=== PATIENT | female | born 1950 | race Caucasian/White ===

== ENCOUNTER 2016-07-18 16:08 | Inpatient (IN) | payer MEDICARE, OTHER ==
[2016-07-18] VITALS (342 sets, daily range): BP systolic 101–118; BP diastolic 58–76; PULSE 79–80; TEMP 97.7–98; O2SAT 92–100
[~2016-07-18] VITALS: Ht 160 cm; Wt 45.4 kg
[2016-07-18] MEDS ORDERED: NORCO 325 MG-51 TAB PO ×2 (20:15→21:07)
[2016-07-18] MEDS ORDERED: GAS RELIEF 8080 MG PO (20:18)
[2016-07-18] MEDS ORDERED: IMODIUM A-D2 MG PO (20:19)
[2016-07-18] MEDS ORDERED: QUESTRAN4 GM/9 GM PO (20:20)
[2016-07-18 20:45] LABS: BASO % 0.2 % (0.0-2.0); EOS % 0.1 % (0-4.0); GRAN # 13.7 (1.4-6.5); GRAN % 82.9 % (42.2-75.2); HEMATOCRIT 37.3 % (37.0-47.0); HEMOGLOBIN 12.2 g/dl (12.5-16.0); LYMPH # 1.7 (1.2-3.4); LYMPH % 10.4 % (20.0-51.0); MEAN CELL VOLUME 88 fl (80.0-100.0); MEAN CORPUSCULAR HEMOGLOBIN 29 pg (27.0-31.0); MEAN CORPUSCULAR HGB CONC 33 g/dl (33.0-37.0); MEAN PLATELET VOLUME 9.6 fl (7.4-10.4); PLATELET COUNT 216 K/mm3 (130-400); RED BLOOD COUNT 4.26 M/mm3 (4.10-5.30); REDCELL DISTRIBUTION WIDTH-CV 13.4 % (11.5-14.5); WHITE BLOOD COUNT 16.6 K/mm3 (4.8-10.8)
[2016-07-18 20:54] LABS: CALCIUM 8.2 mg/dL (8.4-10.2); CREATININE, serum 0.62 mg/dL (0.52-1.25); POTASSIUM 4.5 mmol/L (3.4-5.0)
[2016-07-18] MEDS ORDERED: TYLENOL 500MG500 MG PO (21:02)
[2016-07-18] MEDS ORDERED: BETIMOL 0.5% OPH5 ML OU (21:04)
[2016-07-18] MEDS ORDERED: PRINIVIL2.5 MG PO (21:05)
[2016-07-18] MEDS ORDERED: XALATAN EYE DROPS OD (21:05)
[2016-07-18] MEDS ORDERED: FAMVIR 500500 MG/TAB PO (21:08)
[2016-07-19] VITALS (564 sets, daily range): BP systolic 90–118; BP diastolic 39–92; PULSE 74–90; TEMP 97.9–99; O2SAT 82–100
[2016-07-19 03:07] LABS: BASO % 0.1 % (0.0-2.0); EOS % 0.1 % (0-4.0); GRAN # 10.5 (1.4-6.5); GRAN % 78.6 % (42.2-75.2); LYMPH % 14.6 % (20.0-51.0); MEAN CELL VOLUME 88 fl (80.0-100.0); MEAN CORPUSCULAR HGB CONC 32 g/dl (33.0-37.0); MEAN PLATELET VOLUME 9.7 fl (7.4-10.4); MONO # 0.8 (0.1-0.6); MONO % 6.2 % (1.7-9.3); PLATELET COUNT 210 K/mm3 (130-400); RED BLOOD COUNT 4.12 M/mm3 (4.10-5.30); REDCELL DISTRIBUTION WIDTH-CV 13.4 % (11.5-14.5); WHITE BLOOD COUNT 13.4 K/mm3 (4.8-10.8)
[2016-07-19 03:09] LABS: HEMATOCRIT 36.1 % (37.0-47.0); HEMOGLOBIN 11.6 g/dl (12.5-16.0); MEAN CORPUSCULAR HEMOGLOBIN 28 pg (27.0-31.0)
[2016-07-19 03:18] LABS: CALCIUM 8.1 mg/dL (8.4-10.2); CREATININE, serum 0.63 mg/dL (0.52-1.25); POTASSIUM 4.3 mmol/L (3.4-5.0)
[2016-07-19 03:46] LABS: TROPONIN-I 1.67 ng/mL (0.000-0.034)
[2016-07-20 03:49] VITALS: BP 105/48; PULSE 73; TEMP 98.6
[2016-07-20 08:00] VITALS: BP 88/45; PULSE 70; TEMP 98
[2016-07-20 08:23] VITALS: BP 88/45; PULSE 70; TEMP 98
[2016-07-20 10:52] VITALS: BP 88/45; PULSE 70; TEMP 98
[2016-07-20] MEDS ORDERED: LIPITOR 10MG10 MG PO (12:11)
[2016-07-20] MEDS ORDERED: COREG 3.123.125 MG/T PO (12:11)
[2016-07-20] MEDS ORDERED: NITROSTAT0.4 MG/TAB SL (12:13)
[2016-07-20 12:36] VITALS: BP 93/50; PULSE 71; TEMP 98.4
== END 2016-07-20 15:23 | disposition home or self-care (01) | DRG 287 ==
LOC: IMCU 16:08 → EU 07-19 07:50 → IMCU 07-19 07:56 → MEDICAL 07-19 18:38
PROVIDERS: Internal Medicine Cardiovascular Disease
PROC: B2111ZZ Fluoroscopy of Multiple Coronary Arteries using Low Osmolar Contrast (ICD-10-PCS; principal; 2016-07-19)
DX: I25.110 Atherosclerotic heart disease of native coronary artery with unstable angina pectoris (principal); K50.90 Crohn's disease, unspecified, without complications; E44.0 Moderate protein-calorie malnutrition; Z68.1 Body mass index [BMI] 19.9 or less, adult; I51.81 Takotsubo syndrome; B02.9 Zoster without complications; Z85.01 Personal history of malignant neoplasm of esophagus; I42.0 Dilated cardiomyopathy
CPT/HCPCS: 99222-AI; 99239; C1769; C1887; C1894; J1644; J2250; J2405; J3010; J7030; J7040; Q9967

== ENCOUNTER 2017-09-29 16:18 | Observation (INO) | payer MEDICARE, OTHER ==
[~2017-09-29] VITALS: Ht 160 cm; Wt 49.7 kg
[~2017-09-29 16:18] MED LIST: BETIMOL 0.5% OPH5 ML OU; COREG 3.123.125 MG/T PO; FAMVIR 500500 MG/TAB PO; GAS RELIEF 8080 MG PO; IMODIUM A-D2 MG PO; LIPITOR 10MG10 MG PO; NITROSTAT0.4 MG/TAB SL; NORCO 325 MG-51 TAB PO; PRINIVIL2.5 MG PO; QUESTRAN4 GM/9 GM PO; TYLENOL 500MG500 MG PO; XALATAN EYE DROPS OD
[2017-09-29 17:31] VITALS: BP 144/59; PULSE 54; TEMP 98.6
[2017-09-29] MEDS ORDERED: WELCHOL 625MG625 MG PO (17:41)
[2017-09-29] MEDS ORDERED: PROTONIX 40MG T40 MG PO (17:46)
[2017-09-29 21:11] VITALS: PULSE 67; TEMP 98.1
[2017-09-29 21:29] VITALS: BP 175/75
[2017-09-30 01:51] VITALS: BP 164/63; PULSE 59; TEMP 98.1
[2017-09-30 04:00] VITALS: BP 140/58; PULSE 57; TEMP 97.9
[2017-09-30 07:48] VITALS: BP 140/63; PULSE 65; TEMP 98.1
[2017-09-30 08:29] LABS: BASO % 0.3 % (0.0-2.0); EOS # 0.2 (0.0-0.7); EOS % 2.1 % (0-4.0); GRAN # 6.4 (1.4-6.5); GRAN % 68.1 % (42.2-75.2); HEMATOCRIT 43.7 % (37.0-47.0); HEMOGLOBIN 13.9 g/dl (12.5-16.0); LYMPH # 2.1 (1.2-3.4); LYMPH % 22.5 % (20.0-51.0); MEAN CELL VOLUME 91 fl (80.0-100.0); MEAN CORPUSCULAR HEMOGLOBIN 29 pg (27.0-31.0); MEAN CORPUSCULAR HGB CONC 32 g/dl (33.0-37.0); MEAN PLATELET VOLUME 10.1 fl (7.4-10.4); MONO # 0.6 (0.1-0.6); MONO % 6.7 % (1.7-9.3); PLATELET COUNT 151 K/mm3 (130-400); RED BLOOD COUNT 4.82 M/mm3 (4.10-5.30)
[2017-09-30 08:39] LABS: CALCIUM 8.3 mg/dL (8.4-10.2); CREATININE, serum 0.59 mg/dL (0.52-1.25); POTASSIUM 3.9 mmol/L (3.4-5.0)
[2017-09-30 11:34] VITALS: BP 115/52; PULSE 79; TEMP 98.5
[2017-09-30 14:57] VITALS: BP 140/86; PULSE 69; TEMP 98.9
[2017-09-30 19:19] VITALS: BP 141/62; PULSE 71; TEMP 98.5
[2017-10-01 00:04] VITALS: BP 136/55; PULSE 62; TEMP 98.3
[2017-10-01 04:11] VITALS: BP 126/59; PULSE 58; TEMP 97.6
[2017-10-01 07:12] VITALS: BP 132/74; PULSE 61; TEMP 97.9
[2017-10-01 12:08] VITALS: BP 137/48; PULSE 59; TEMP 98.4
[2017-10-01 15:36] VITALS: BP 133/46; PULSE 53; TEMP 98
== END 2017-10-01 18:43 | disposition home or self-care (01) ==
LOC: SURG 16:18
PROVIDERS: Surgery
DX: K56.600 Partial intestinal obstruction, unspecified as to cause (principal); K50.90 Crohn's disease, unspecified, without complications; Z90.49 Acquired absence of other specified parts of digestive tract; F17.210 Nicotine dependence, cigarettes, uncomplicated; Z85.01 Personal history of malignant neoplasm of esophagus
CPT/HCPCS: G0378; G0379; J1170; J2405; J7030